=== PATIENT | male | born 1980 | race Caucasian/White ===

== ENCOUNTER 2022-11-04 11:34 | Emergency (ER) | payer MEDICAID, SELFPAY ==
[2022-11-04 11:53] VITALS: BP 101/66; PULSE 112; RESP 20; TEMP 36.7; O2SAT 100; BMI 23.7
--- NOTE | 2022-11-04 12:01 | US_ITS ---
WS: [id number] TESTICULAR ULTRASOUND HISTORY: r testicular pain COMPARISON: None available. TECHNIQUE: Real-time and color Doppler imaging or utilized to perform a testicular ultrasound. Right testicle: 4.6 cm x 3.8 cm x 2.8 cm. Normal sized testicle. Color Doppler is increased within the RIGHT testicle as compared to the LEFT. Small simple hydrocele. Right epididymis: Epididymis is enlarged and heterogeneous with increased vascularity. There is a sma ll spermatocele in the RIGHT epididymal head. Left testicle: 4.5 cm x 4.0 cm x 3.5 cm. Normal size and echogenicity. No mass or torsion. Normal color Doppler is present throughout. Systolic and diastolic velocities are both present. No significant hydrocele. Left epididymis: Normal epididymis with no increased vascularity. US/US scrotum [id number] IMPRESSION: 1. Acute RIGHT epididymo-orchitis. 2. No testicular mass or torsion.
[2022-11-04 14:36] LABS: Add Urine Microscopic? YES; Bilirubin Urine Neg (Negative); Blood Urine Neg (Negative); Glucose Urine UA Norm (Normal); Ketones Urine 1+ (Negative); Leukocyte Esterase Urine 1+ (Negative); Nitrate Urine Negative (Negative); Protein Urine Neg (Negative); Specific Gravity, Urine 1.015 (1.005-1.030); Urine Appearance Clear (CLEAR); Urine Color Yellow (Yellow); Urobilinogen Urine Norm (Negative); pH Urine 9 (5-7)
[2022-11-04 14:49] LABS: RBC Urine 0-4 /hpf (0-2); Sulfosalicylic Acid Urine Negative (Negative); WBC Urine 15-25 /hpf (0-5)
[2022-11-04 14:50] LABS: Bacteria Urine TRACE /hpf; Squamous Epithelial Cell Urine 0-4 /hpf (0-5)
[2022-11-04 14:51] LABS: Add Urine Culture? Yes; Amorphous Sediment Urine TRACE /hpf; Mucus Urine 1+ /hpf
--- NOTE | 2022-11-04 15:41 | ED_ITS ---
Documented by User: Jennifer Crane CINDER MAN-C 11/04/22 19:01 HPI - Male Genitourinary General: Chief complaint: Urogenital-Male Stated complaint: testicular pain Time Seen by Provider: 11/04/22 15:16 History of Present Illness: Patient is in for testicular pain. Patient reports that he started having severe testicular pain on the right side last night. He did not have any injury known to his testicle. He reports that this has not improved and so he came to the ER to have it evaluated. He does offer that he recently got out of longterm 2 months ago when he has had 4 new sexual partner since that time he thinks that he could have an STI. He denies any pe nile drainage. He denies fever, chills, nausea, vomiting. Associated symptoms: Reports dysuria; Deny nausea or vomiting Review of Systems Const: Denies: fever(s), chills or body aches Eyes: Denies: change in vision or blurry vision Card: Denies: chest pain, palpitations, irregular heart rhythm, lightheadedness or syncope Resp: Denies: dyspnea, productive cough or non-productive cough GI: Denies: abdominal pain, nausea or vomiting : Reports: dysuria, testicular pain, scrotal swelling and other (Four new recent sexual partners unprotected); Denies: flank pain, urinary frequency, urinary urgency or urinary hesitancy Musc: Denies: neck pain or back pain Neuro: Denies: headache(s), numbness in extremities or weakness in extremities Physical Exam Const: COMMON NORMALS: patient oriented x3 and alert OTHER: Patient in obvious pain having a difficult time getting comfortable Neck/C-Spine: COMMON NORMALS: no JVD Resp: COMMON NORMALS: normal respiratory effort, No use of accessory muscles and clear to auscultation bilaterally AUSCULTATION: clear to auscultation bilaterally Cardio: COMMON NORMALS: no JVD, regular rate, regular rhythm, S1 normal heart sound present and S2 normal heart sound present RATE: regular rate RHYTHM: regular rhythm HEART SOUNDS: S1 normal heart sound present and S2 normal heart sound present GI: COMMON NORMALS: Normal to inspection, nondistended, normoactive bowel melania nds present, Soft to palpation and non-tender PALPATION: Yes Soft to palpation : SCROTUM: Yes Cremasteric reflex present, Yes Scrotal tenderness present, Yes erythematous Scrotal erythema laterality: right and Yes scrotal swelling Scrotal swelling laterality: right Scrotal swelling consistent with: hydrocele Neuro: COMMON NORMALS: patient oriented x3 SENSORIUM/ORIENTATION: Yes alert Course Vital Signs: Vital signs: Vital Signs Temperature 98.0 F 11/04/22 18:23 Pulse Rate 112 H 11/04/22 18:23 Respiratory Rate 20 H 11/04/22 18:23 Blood Pressure 101/66 11/04/22 18:23 Pulse Oximetry 100 11/04/22 18:23 Oxygen Delivery Me thod 11/04/22 11:53 MDM - Male Medical Decision Making 42-year-old male in for sudden onset right testicular/scrotum pain. Reports that this started last night and has persisted since that time with no relief. He does report that he has had 4 new sexual partners since getting out of longterm 2 months ago. He reports unprotected intercourse. He denies any penile drainage but states it is likely he has a sexually transmitted infection. Differentials include testicular torsion epididymitis, orchitis, hydrocele Ultrasound shows epididymo-orchitis. Likely STI given patient's recent new multiple sexual partners. We will treat to cover for gonorrhea chlamydia. Patient is allergic to cephalosporins. Gentamicin is substituted for Rocephin and patient is given azithromycin. Treated for pain with Toradol and hydrocodone x1 dose. Discussed conservative care at home. Follow-up with primary care provider. Return to the ER as needed for new or worsening symptoms advised him to refrain from intercourse until he is certain that his STI testing is negative. Also encouraged use of condoms for barrier protection from STIs. Lab Data Radiology Impressions Scrotum Ultrasound 11/04/22 12:01 IMPRESSION: 1. Acute RIGHT epididymo-orchitis. 2. No testicular mass or torsion. Laboratory Results Urine Color Yellow (Yellow) 11/04/22 13:44 Urine Appearance Clear (CLEAR) 11/04/22 13:44 Urine pH 9 (5-7) H 11/04/22 13:44 Ur Specific [place] 1.015 (1.005-1.030) 11/04/22 13:44 Urine Protein Neg (Negative) 11/04/22 13:44 Urine Glucose (UA) Norm (Normal) 11/04/22 13:44 Urine Ketones 1+ (Negative) H 11/04/22 13:44 Urine Blood Neg (Negative) 11/04/22 13:44 Urine Nitrate Negative (Negative) 11/04/22 13:44 Urine Bilirubin Neg (Negative) 11/04/22 13:44 Prot Sulfosalicylic Acd Negative (Negative) 11/04/22 13:44 Urine Urobilinogen Norm mg/dL (Negative) 11/04/22 13:44 Ur Leukocyte Esterase 1+ (Negative) H 11/04/22 13:44 Urine RBC 0-4 /hpf (0-2) H 11/04/22 13:44 Urine WBC 15-25 /hpf (0-5) H 11/04/22 13:44 Ur Squamous Epith Cells 0-4 /hpf (0-5) H 11/04/22 13:44 Amorphous Sediment Trace /hpf 11/04/22 13:44 Urine Bacteria Trace /hpf (NONE) 11/04/22 13:44 Urine Mucus 1+ /hpf 11/04/22 13:44 Discharge Plan Discharge Patient Disposition: Home Clinical Impression: Epididymo-orchitis without abscess, History of sexual behavior with high risk of exposure to communicable disease Condition: Stable Prescriptions: No Action No Known Home Medications Discharge Orders: Discharge ED (Routine); Ordered 11/04/22 Ordered By: Jennifer Crane Discharge Diet: Usual diet Discharge Activity: Increase activity as tolerated Patient Instructions: Epididymo-Orchitis (ED) Activity Restrictions/Additional Instructions: Rest, ice, elevation of testicles may be helpful for pain control. You may take Tylenol and Motrin as needed. You were treated with antibiotics in here today to cover for gonorrhea and chlamydia. Your urine was sent for testing. Do not engage in sexual activity until you know that your urine tested negative for sexually transmitted infections. Follow-up with primary care provider as needed. Return to the ER for any new or worsening symptoms. 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 Reports that this started last night and has persisted since that time with no relief. He does report that he has had 4 new sexual partners since getting out of longterm 2 months ago. He reports unprotected intercourse. He denies any penile drainage but states it is likely he has a sexually transmitted infection. Differentials include testicular torsion epididymitis, orchitis, hydrocele Ultrasound shows epididymo-orchitis. Likely STI given patient's recent new multiple sexual partners. We will treat to cover for gonorrhea chlamydia. Patient is allergic to cephalosporins. Gentamicin is substituted for Rocephin and patient is given azithromycin. Treated for pain with Toradol and hydrocodone x1 dose. Discussed conservative care at home. Follow-up with primary care provider. Return to the ER as needed for new or worsening symptoms advised him to refrain from intercourse until he is certain that his STI testing is negative. Also encouraged use of condoms for barrier protection from STIs. Chart reviewed and patient discussed with midlevel. Agree with assessment and plan. Lab Data Radiology Impressions Scrotum Ultrasound 11/04/22 12:01 IMPRESSION: 1. Acute RIGHT epididymo-orchitis. 2. No testicular mass or torsion. Laboratory Results Urine Color Yellow (Yellow) 11/04/22 13:44 Urine Appearance Clear (CLEAR) 11/04/22 13:44 Urine pH 9 (5-7) H 11/04/22 13:44 Ur Specific [place] 1.015 (1.005-1.030) 11/04/22 13:44 Urine Protein Neg (Negative) 11/04/22 13:44 Urine Glucose (UA) Norm (Normal) 11/04/22 13:44 Urine Ketones 1+ (Negative) H 11/04/22 13:44 Urine Blood Neg (Negative) 11/04/22 13:44 Urine Nitrate Negative (Negative) 11/04/22 13:44 Urine Bilirubin Neg (Negative) 11/04/22 13:44 Prot Sulfosalicylic Acd Negative (Negative) 11/04/22 13:44 Urine Urobilinogen Norm mg/dL (Negative) 11/04/22 13:44 Ur Leukocyte Esterase 1+ (Negative) H 11/04/22 13:44 Urine RBC 0-4 /hpf (0-2) H 11/04/22 13:44 Urine WBC 15-25 /hpf (0-5) H 11/04/22 13:44 Ur Squamous Epith Cells 0-4 /hpf (0-5) H 11/04/22 13:44 Amorphous Sediment Trace /hpf 11/04/22 13:44 Urine Bacteria Trace /hpf (NONE) 11/04/22 13:44 Urine Mucus 1+ /hpf 11/04/22 13:44 Discharge Plan Discharge Patient Disposition: Home Clinical Impression: Epididymo-orchitis without abscess, History of sexual behavior with high risk of exposure to communicable disease Condition: Stable Prescriptions: No Action No Known Home Medications Discharge Orders: Discharge ED (Routine); Ordered 11/04/22 Ordered By: Jennifer Crane Discharge Diet: Usual diet Discharge Activity: Increase activity as tolerated Patient Instructions: Epididymo-Orchitis (ED) Activity Restrictions/Additional Instructions: Rest, ice, elevation of testicles may be helpful for pain control. You may take Tylenol and Motrin as needed. You were treated with antibiotics in here today to cover for gonorrhea and chlamydia. Your urine was sent for testing. Do not engage in sexual activity until you know that your urine tested negative for sexually transmitted infections. Follow-up with primary care provider as needed. Return to the ER for any new or worsening symptoms. 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
[2022-11-04] MEDS: HYDROcodone-acetaminophen 5-325 mg Tablet 1 TAB PO (16:03)
[2022-11-04] MEDS: ketorolac 30 mg/mL INJ IVP (16:03)
[2022-11-04] MEDS: azithromycin 250 mg Tablet 2000 MG PO (16:03)
[2022-11-04 18:23] VITALS: BP 101/66; PULSE 112; RESP 20; TEMP 36.7; O2SAT 100
== END 2022-11-04 16:25 | disposition home or self-care (01) ==
PROVIDERS: Emergency Medicine; Emergency Provider Nurse Practitioner Family
DX: N45.3 Epididymo-orchitis (principal); Z72.51 High risk heterosexual behavior
CPT/HCPCS: 76870; 81001; 87086; 87491; 87591; 99285; J1580; J1885; Q0144

== ENCOUNTER 2022-11-05 14:13 | Inpatient (IN) | payer MEDICAID, SELFPAY ==
[2022-11-05 14:21] VITALS: BP 93/71; PULSE 99; RESP 16; TEMP 37.3; O2SAT 100; BMI 23.7
--- NOTE | 2022-11-05 14:38 | W.ED.MALEGU ---
HPI - Male Genitourinary General: Chief complaint: Urogenital-Male Stated complaint: testicular pain still Time Seen by Provider: 11/05/22 14:31 Source: patient Mode of arrival: ambulatory History of Present Illness: 42-year-old male presents emergency room with complaint of right testicular pain. Seen yesterday had a scrotal ultrasound that showed right epididymitis she was treated empirically with 2 g of Zithromax and IM gentamicin. He continues to have pain today. MD Complaint: testicle pain and testicle swelling Onset (ago): day(s) Duration: constant Location: right testicle Severity: severe Quality: aching Relieving factors: none Exacerbating factors: none Associated symptoms: Reports nausea and swelling; Deny discharge, dysuria, fevers/chills, hematuria, rash, urinary incontinence, urinary retention, mass, vomiting or other Review of Systems Const: Denies: fever(s), chills, body aches, change in appetite, fatigue or malaise ENMT: Denies: throat pain, ear or mastoid pain, nasal discharge or nasal congestion Card: Denies: chest pain, edema, dyspnea on exertion or orthopnea Resp: Denies: dyspnea, productive cough or non-productive cough GI: Reports: nausea; Denies: vomiting : Denies: dysuria, urinary incontinence or hematuria Skin/Breast: Denies: rash or pruritus PFSH ED PFSH: Medical History Epididymo-orchitis without abscess Nicotine dependence Physical Exam Const: GENERAL APPEARANCE: cooperative and comfortable ORIENTATION/CONSCIOUSNESS: Yes awake, Yes oriented to person, Yes oriented to place and Yes oriented to time HENMT: COMMON NORMALS: normocephalic, atraumatic and hearing grossly normal bilaterally HEAD & SCALP: normocephalic and atraumatic Resp: COMMON NORMALS: normal respiratory effort, No retractions, No use of accessory muscles and clear to auscultation bilaterally AUSCULTATION: clear to auscultation bilaterally Cardio: COMMON NORMALS: regular rate, regular rhythm and No murmurs present (Cardio) RATE: regular rate RHYTHM: regular rhythm GI: COMMON NORMALS: Soft to palpation and No hepatosplenomegaly present AUSCULTATION: Yes normoactive bowel sounds PALPATION: Yes Soft to palpation, No Tenderness to palpation present (GI), No Guarding due to palpation present (GI) and Yes No hepatosplenomegaly present : OTHER: Prominent swelling with induration of the skin exquisite tenderness palpation of the right testicle. No abscess. No drainage Extremity: COMMON NORMALS: normal to inspection, capillary refill normal, no clubbing, cyanosis or edema, no calf tenderness and no pedal edema Neuro: SENSORIUM/ORIENTATION: Yes oriented to person, Yes oriented to place and Yes oriented to time Skin: COMMON NORMALS: no rashes or lesions noted GENERAL SKIN EXAM: no rashes or lesions noted Course Vital Signs: Vital signs: Vital Signs Temperature 98.1 F 11/08/22 13:54 Pulse Rate 70 11/08/22 13:54 Respiratory Rate 16 11/08/22 13:54 Blood Pressure 105/67 11/08/22 13:54 Pulse Oximetry 97 11/08/22 13:54 Oxygen Delivery Me thod 11/08/22 11:31 MDM - Male Medical Decision Making Severe epididymitis with progressed to cellulitis. Will admit started on IV vancomycin discussed with hospitalist consult urology Lab Data 11/05/22 14:50 11/05/22 14:[address] 11/05/22 16:32 IMPRESSION: Findings of right-sided mastitis and epididymitis. Laboratory Results WBC 21.5 10^3/uL (4.0-10.0) H 11/05/22 14:50 RBC 4.79 10^6/uL (4.1-5.3) 11/05/22 14:50 Hgb 14.5 g/dL (11.7-16.6) 11/05/22 14:50 Hct 44.6 % (42.0-52.0) 11/05/22 14:50 MCV 93.1 fl (80-94) 11/05/22 14:50 MCH 30.3 pg (28.0-34.0) 11/05/22 14:50 MCHC 32.5 g/dL (30.0-36.0) 11/05/22 14:50 RDW 13.6 % (12.1-15.1) 11/05/22 14:50 Plt Count 201 10^3/cmm (130-400) 11/05/22 14:50 MPV 9.9 fL (7.4-10.4) 11/05/22 14:50 Neut % (Auto) 84.3 % 11/05/22 14:50 Lymph % (Auto) 9.1 % 11/05/22 14:50 [place] % (Auto) 5.4 % 11/05/22 14:50 Eos % (Auto) 0.2 % 11/05/22 14:50 Baso % (Auto) 0.3 % 11/05/22 14:50 Neut # (Auto) 18.13 10^3/uL (1.8-7.7) H 11/05/22 14:50 Lymph # (Auto) 2.0 10^3/uL (0.8-4.8) 11/05/22 14:50 [place] # (Auto) 1.2 10^3/uL (0.2-0.9) H 11/05/22 14:50 Eos # (Auto) 0.0 10^3/uL (0.0-0.8) 11/05/22 14:50 Baso # (Auto) 0.1 10^3/uL (0.0-0.1) 11/05/22 14:50 Nucleated RBC % (auto) 0 % 11/05/22 14:50 Nucleated RBCs # 0.0 /100WBC 11/05/22 14:50 Sodium 137 mmol/L (136-145) 11/05/22 14:50 Potassium 3.8 mmol/L (3.5-5.1) 11/05/22 14:50 Chloride 98 mmol/L (98-107) 11/05/22 14:50 Carbon Dioxide 26 mmol/L (22-29) 11/05/22 14:50 Anion Gap 16.8 (5-19) 11/05/22 14:50 BUN 13 mg/dL (6-20) 11/05/22 14:50 Creatinine 0.9 mg/dL (0.7-1.2) 11/05/22 14:50 GFR Calculation 93.0 mL/min (90-130) 11/05/22 14:50 Glucose 127 mg/dL (65-115) H 11/05/22 14:50 Calculated Osmolality 286 mOsm/kg (285-295) 11/05/22 14:50 Lactic Acid 1.6 mmol/L (0.5-2.2) 11/05/22 17:40 Calcium 8.8 mg/dL (8.5-10.5) 11/05/22 14:50 Procalcitonin 0.41 ng/mL (0-0.5) 11/05/22 14:50 TSH 0.46 uIU/mL (0.27-4.20) 11/05/22 14:50 HIV 1&2 Ab & HIV 1 Ag Non-reactive (Non-Reactiv) 11/05/22 04:58 HIV 1&2 Antibody Non-reactive (Non-Reactiv) 11/05/22 04:58 Discharge Plan Discharge Patient Disposition: Admitted As Inpatient Admit Provider: Latasha Newton Clinical Impression: Epididymitis, Cellulitis Condition: Stable 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
[2022-11-05] MEDS: sodium chloride 0.9% 1,000 ML 999 ML IV ×2 (14:49→15:01)
[2022-11-05] MEDS: ketorolac 30 mg/mL INJ 60 MG IM (14:49)
[2022-11-05] MEDS: morphine 4 mg/mL SDV 1 mL IVP (14:49)
[2022-11-05] MEDS: ondansetron 2 mg/ML SDV 2 mL 4 MG IVP (14:50)
[2022-11-05] MEDS: vancomycin 1,000 MG in sodium chloride 0.9% 250 ML 250 MG IV (14:59)
[2022-11-05 15:22] LABS: Basophils # 0.1 10^3/uL (0.0-0.1); Basophils % 0.3 %; Eosinophils % 0.2 %; Hematocrit 44.6 % (42.0-52.0); Hemoglobin 14.5 g/dL (11.7-16.6); Lymphocytes % 9.1 %; Mean Corpuscular HGB Conc 32.5 g/dL (30.0-36.0); Mean Corpuscular Hemoglobin 30.3 pg (28.0-34.0); Mean Corpuscular Volume 93.1 fl (80-94); Mean Platelet Volume 9.9 fL (7.4-10.4); Monocytes # 1.2 10^3/uL (0.2-0.9); Monocytes % 5.4 %; Neutrophils # 18.13 10^3/uL (1.8-7.7); Neutrophils % 84.3 %; Nucleated Red Blood Cells % 0 %; Platelet Count 201 10^3/cmm (130-400); Red Blood Count 4.79 10^6/uL (4.1-5.3); Red Cell Distribution Width 13.6 % (12.1-15.1); White Blood Count 21.5 10^3/uL (4.0-10.0)
[2022-11-05 15:39] LABS: Anion Gap 16.8 (5-19); Blood Urea Nitrogen 13 mg/dL (6-20); Calcium 8.8 mg/dL (8.5-10.5); Carbon Dioxide 26 mmol/L (22-29); Chloride 98 mmol/L (98-107); Glucose 127 mg/dL (65-115); Osmolality Calculated 286 mOsm/kg (285-295); Potassium 3.8 mmol/L (3.5-5.1); Sodium 137 mmol/L (136-145)
--- NOTE | 2022-11-05 16:32 | CTR_ITS ---
PROCEDURE INFORMATION: Exam: CT Pelvis With Contrast Exam date and time: 11/05/2022 5:12 PM Age: 42 years old Clinical indication: Patient HX: PT C/O testicular pain w/swelling x 2 days; Swollen scrotum/fournierrs. ; Additional info: Swollen scrotum/ fournierrs TECHNIQUE: Imaging protocol: Computed tomography of the pelvis with contrast. Radiation optimization: All CT scans at this facility use at least one of these dose optimization techniques: automated exposure control; mA and/or kV adjustment per patient size (includes targeted exams where dose is matched to clinical indication); or iterative reconstruction. Contrast material: OMNI 350; Contrast volume: 100 ml; Contrast route: INTRAVENOUS (IV); Other protocol: This patient has received 0 known CTs and 0 known cardiac nuclear medicine studies in the 12 months prior to the current study. COMPARISON: US scrotum [id number] 11/04/2022 12:46 PM RADIATION DOSE METRICS: Total DLP (mGy-cm): 352.18 FINDINGS: Stomach and bowel: Visualized small bowel and colon are unremarkable. Appendix: Appendix is not visualized on this exam. Intraperitoneal space: Unremarkable. No free air. No significant fluid collection. Lymph nodes: Unremarkable. No enlarged lymph nodes. Urinary bladder: Urinary bladder is unremarkable. Reproductive: There is hyperemia of the right epididymis and hyperenhancement of the vessels of the right spermatic cord. No large hydrocele is identified. Bones/joints: No acute fracture is identified. Soft tissues: There is some swelling or edema in the right inguinal canal and of the right spermatic cord which may represent some mastitis. There is mild swelling of the scrotal wall but no drainable fluid collection or abscess and no abnormal soft tissue gas. CT/CT pelvis w con* [id number] IMPRESSION: Findings of right-sided mastitis and epididymitis.
[2022-11-05] MEDS: sodium chloride 0.9% 2,449.41 ML 2449.41 ML IV (16:43)
[2022-11-05] MEDS: iohexol 350 mg/mL 500 mL Btl (per mL) IV (17:13)
[2022-11-05 17:29] VITALS: BP 94/60; PULSE 75; RESP 16; O2SAT 98
[2022-11-05 18:09] VITALS: BP 90/55; PULSE 80; RESP 16; O2SAT 99
--- NOTE | 2022-11-05 18:25 | P.HP_ITS ---
Providers/Chief Complaint Admitting Physician: Latasha Newton MD Chief Complaint: testicular pain still History of Present Illness Marco A Pagan is a 42 year old male with no significant past medical history presenting to the ER with complaint of worsening swelling of his scrotum. He was seen today before in the ER for testicular pain. At that point he stated that he was having severe testicular pain on the right side. No known injury. He did get out of [facility] ago and he has had 4 new sexual partner since that time and he thought he had STD. He denies any penile discharge. Denies fever chills nausea vomiting. Patient was treated for gonorrhea chlamydia and urine sample was sent off to test for it. He was allergic to cephalosporins so he was given gentamicin and azithromycin including Toradol and hydrocodone. Scrotal ultrasound was also done which showed acute right epididymal orchitis no testicular mass or torsion. He was asked to return to the ER if it worsened. He presented tonight for worsening of symptoms. He also states that lately he has noticed he has a decreased urine stream. Has never had urological issues in the past. He is unaware of any prostate problems. Today in the ER pelvic CT was done which showed findings of right-sided mastitis and epididymitis. Some swelling in right inguinal canal of right spermatic cord. No drainable fluid collection or abscess and no abnormal soft tissue gas. Dr. Soriano was consulted from the ER. He recommended conservative management with antibiotics at this point. Blood pressure 90/60 at this time when seen. Not tachycardic. WBC 21,000, UA from yesterday shows 1+ leukocyte esterase, WBC 50-25. Gonorrhea chlamydia negative. Patient is consented to check for HIV. Lactic acid 1.6. Patient is a smoker. Does not drink alcohol. Medications/Allergies Home Medications Medication Instructions Recorded Confirmed Last Taken Type No Known Home Medications 11/04/22 11/05/22 Unknown History Allergies Allergy/AdvReac Type Severity Reaction Status Date / Time cephalexin [From Keflex] Allergy ALGY-Anaphy Verified 11/05/22 14:22 laxis Vitals/I&O/Wt Last Vital Signs Temp 99.2 F 11/05/22 14:21 Pulse 80 11/05/22 18:09 Resp 16 11/05/22 18:09 BP 90/55 11/05/22 18:09 Pulse Ox 99 11/05/22 18:09 O2 Del Method 11/05/22 18:09 11/05/22 11/05/22 11/05/22 06:59 14:59 22:59 Intake Total 1449.8 / 1449.8 Balance 1449.8 / 1449.8 Weight last 48 hrs Weight 81.647 kg Physical Exam Narrative: General: Alert oriented x3, patient seen sitting in bed HEENT: Normocephalic, atraumatic, EOMI, breathing normally no acute distress. Cardio: Regular rate rhythm, normal S1-S2, Respiratory: Good bilateral air entry, no wheezes no rhonchi appreciated GI: Abdomen soft, nontender, nondistended, bowel sounds + : Redness noted in the right groin area extending up to thigh and involving the scrotum. Scrotum swelling equivalent to size of grapefruit, extremely tender to palpation and very erythematous. No apparent drainage or open wounds noted. Exam was quite limited secondary to pain. Patient did not allow me to move the scrotum to look at the groin completely secondary to pain. Did not perform a prostate exam at this time due to patient's positioning and extreme pain with any kind of manipulation. Extremities: No edema noted. Data 11/05/22 14:50 11/05/22 14:50 Micro: Microbiology 11/05/22 15:03 Blood Culture - Preliminary Blood SPECIMEN COLLECTED 11/05/22 14:59 Blood Culture - Preliminary Blood SPECIMEN COLLECTED A&P Assessment and plan (1) Epididymo-orchitis without abscess: (2) History of sexual behavior with high risk of exposure to communicable disease: (3) Cellulitis: (4) Nicotine dependence: Plan #Acute epididymitis/orchitis #Cellulitis of right groin #Nicotine dependence ? Gonorrhea chlamydia negative, HIV screen ordered ? Patient is status post azithromycin and IM gentamicin from yesterday's visit ? Given normal saline 1 L bolus ? Continue on IV fluids normal saline 125 cc/h ? Patient is allergic to Keflex. He had hives and possible anaphylaxis in the past according to what he is explaining. ? We will order vancomycin and meropenem at this time ? Appreciate recommendations from urology. ? Await results of urine culture - He will need to follow-up with urology at discharge. -Await blood cultures -Nicotine patch offered but patient declined at this time. Full code DVT prophylaxis: Low risk for DVT. SCDs should suffice. Attestations Medical Necessity Statement*: Will cross greater than 2 midnight stay for IV antibiotics for treatment of cellulitis/acute epididymitis. Diagnoses Epididymo-orchitis without abscess N45.3 History of sexual behavior with high risk of exposure to communicable disease Z91.89 Cellulitis L03.90 Nicotine dependence F17.200
[2022-11-05 18:50] LABS: Lactic Sepsis W/Reflex 1.6 mmol/L (0.5-2.2)
[2022-11-05 19:44] VITALS: BP 105/64; PULSE 71; RESP 18; O2SAT 98
[2022-11-05 19:47] LABS: Procalcitonin 0.41 ng/mL (0-0.5)
[2022-11-05 19:48] LABS: Thyroid Stimulating Hormone 0.46 uIU/mL (0.27-4.20)
[2022-11-05 20:00] VITALS: BP 99/61; PULSE 82; RESP 18; TEMP 36.7; O2SAT 99
[2022-11-05 21:56] VITALS: BMI 23.7
[2022-11-05 22:08] VITALS: RESP 16
[2022-11-05] MEDS: sodium chloride 0.9% 1,000 ML 125 ML IV (22:08)
[2022-11-05] MEDS: morphine 4 mg/mL SDV 1 mL 2 MG IVP (22:08)
[2022-11-05] MEDS: meropenem 1,000 MG in sodium chloride 0.9% (plus) 50 ML 100 MG IV (22:08)
[2022-11-05] MEDS: vancomycin 1,250 MG/250 ML PIGGYBACK 250 MG IV (23:23)
[2022-11-06 00:38] VITALS: BP 95/60; PULSE 90; RESP 17; TEMP 37.4; O2SAT 95
[2022-11-06] MEDS: meropenem 1,000 MG in sodium chloride 0.9% (plus) 50 ML 100 MG IV ×3 (02:42→18:38)
[2022-11-06 04:20] VITALS: BP 98/46; PULSE 144; RESP 19; TEMP 37.4; O2SAT 90
--- NOTE | 2022-11-06 04:21 | PC.NURSE ---
Dr Valadez notified of low blood pressures and last charted, including fluids running. No new orders taken at this time.
[2022-11-06 05:18] LABS: Add Urine Microscopic? YES; Bilirubin Urine Neg (Negative); Blood Urine Neg (Negative); Glucose Urine UA Norm (Normal); Ketones Urine Negative (Negative); Leukocyte Esterase Urine Negative (Negative); Nitrate Urine Negative (Negative); Protein Urine Trace (Negative); Urine Appearance Clear (CLEAR); Urine Color Yellow (Yellow); Urobilinogen Urine 1 mg/dL (Negative); pH Urine 5 (5-7)
[2022-11-06 05:20] LABS: Add Urine Culture? No; Bacteria Urine TRACE /hpf; Mucus Urine TRACE /hpf; RBC Urine 0-4 /hpf (0-2); Squamous Epithelial Cell Urine 0-4 /hpf (0-5); WBC Urine 0-4 /hpf (0-5)
[2022-11-06 05:22] LABS: Basophils % 0.2 %; Eosinophils # 0.1 10^3/uL (0.0-0.8); Eosinophils % 0.5 %; Hemoglobin 12.2 g/dL (11.7-16.6); Lymphocytes # 1.9 10^3/uL (0.8-4.8); Lymphocytes % 12.2 %; Mean Corpuscular HGB Conc 31.3 g/dL (30.0-36.0); Mean Corpuscular Hemoglobin 30.4 pg (28.0-34.0); Mean Corpuscular Volume 97.3 fl (80-94); Monocytes # 0.9 10^3/uL (0.2-0.9); Monocytes % 6.2 %; Neutrophils # 12.19 10^3/uL (1.8-7.7); Neutrophils % 80.4 %; Nucleated Red Blood Cells % 0 %; Platelet Count 167 10^3/cmm (130-400); Red Blood Count 4.01 10^6/uL (4.1-5.3); Red Cell Distribution Width 13.7 % (12.1-15.1); White Blood Count 15.2 10^3/uL (4.0-10.0)
[2022-11-06 05:46] LABS: Anion Gap 8.9 (5-19); Blood Urea Nitrogen 12 mg/dL (6-20); Calcium 7.3 mg/dL (8.5-10.5); Carbon Dioxide 23 mmol/L (22-29); Chloride 107 mmol/L (98-107); Glomerular Filtration Rate 124.3 mL/min (90-130); Glucose 90 mg/dL (65-115); Osmolality Calculated 279 mOsm/kg (285-295); Potassium 3.9 mmol/L (3.5-5.1); Sodium 135 mmol/L (136-145)
[2022-11-06 05:59] LABS: HIV 1 & 2 Antibody Non-Reactive (Non-Reactiv); HIV 1 & 2 Antigen Non-Reactive (Non-Reactiv)
[2022-11-06] MEDS: vancomycin 1,250 MG/250 ML PIGGYBACK 250 MG IV ×2 (06:07→15:23)
[2022-11-06 07:40] VITALS: BP 105/62; PULSE 95; RESP 16; TEMP 37; O2SAT 93
[2022-11-06] MEDS: sodium chloride 0.9% 1,000 ML 125 ML IV ×2 (10:07→20:36)
[2022-11-06] MEDS: ketorolac 10 mg Tablet PO ×2 (10:21→17:28)
[2022-11-06] MEDS: HYDROcodone-acetaminophen 5-325 mg Tablet 1 TAB PO ×2 (11:07→15:21)
[2022-11-06 12:00] VITALS: BP 100/63; PULSE 75; RESP 16; TEMP 36.7; O2SAT 95
--- NOTE | 2022-11-06 14:04 | PM.PN ---
Subjective Subjective: Patient tells me this morning that the cellulitis has improved, but still it continues to hurt, no fevers, no chills Vitals/I&O/Wt Last Vital Signs Temp 98.0 F 11/06/22 12:00 Pulse 75 11/06/22 12:00 Resp 16 11/06/22 12:00 BP 100/63 11/06/22 12:00 Pulse Ox 95 11/06/22 12:00 O2 Del Method 11/06/22 12:00 11/05/22 11/06/22 11/06/22 22:59 06:59 14:59 Intake Total 1929.8 / 1929.8 1590 / 3519.8 900 / 900 Output Total 400 / 400 Balance 1929.8 / 1929.8 1190 / 3119.8 900 / 900 Weight last 48 hrs Weight 81.647 kg Weight 81.647 kg Physical Exam Const: COMMON NORMALS: no acute distress and patient oriented x3 Resp: COMMON NORMALS: normal respiratory effort, No retractions, No use of accessory muscles and clear to auscultation bilaterally AUSCULTATION: clear to auscultation bilaterally Cardio: COMMON NORMALS: regular rate, regular rhythm, S1 normal heart sound present and S2 normal heart sound present RATE: regular rate RHYTHM: regular rhythm HEART SOUNDS: S1 normal heart sound present and S2 normal heart sound present GI: COMMON NORMALS: Normal to inspection, nondistended, normoactive bowel sounds present and non-tender : OTHER: Right scrotal erythema, swelling Extremity: COMMON NORMALS: no pedal edema Neuro: COMMON NORMALS: patient oriented x3 Psych: COMMON NORMALS: mental status grossly normal Data 11/06/22 04:58 11/06/22 04:58 Micro: Microbiology 11/05/22 15:03 Blood Culture - Preliminary Blood SPECIMEN COLLECTED 11/05/22 14:59 Blood Culture - Preliminary Blood SPECIMEN COLLECTED A&P Assessment and plan (1) Epididymo-orchitis without abscess: (2) History of sexual behavior with high risk of exposure to communicable disease: (3) Cellulitis: (4) Nicotine dependence: Plan #Acute epididymitis/orchitis #Cellulitis of right groin #Nicotine dependence ? Gonorrhea chlamydia negative, HIV screen negative ? Patient is status post azithromycin and IM gentamicin from yesterday's visit ? Continue on IV fluids normal saline 125 cc/h ? Patient is allergic to Keflex. He had hives and possible anaphylaxis in the past according to what he is explaining. ? Continue vancomycin and meropenem at this time -Scrotal elevation -Hydrocodone as needed for pain control ? Appreciate recommendations from urology. ? Await results of urine culture - He will need to follow-up with urology at discharge. -Await blood cultures -Nicotine patch offered but patient declined at this time. Full code DVT prophylaxis: Low risk for DVT. SCDs should suffice. Attestations Medical Necessity Statement*: Patient requires hospitalization for acute epididymitis, orchitis, cellulitis of right groin Coding Level of Care Code Acute Code for [facility] Diagnoses Epididymo-orchitis without abscess N45.3 History of sexual behavior with high risk of exposure to communicable disease Z91.89 Cellulitis L03.90 Nicotine dependence F17.200
[2022-11-06 15:12] LABS: Vancomycin Trough 11.7 ug/mL (10-15)
[2022-11-06 15:44] VITALS: BP 104/68; PULSE 82; RESP 15; TEMP 36.6; O2SAT 95
[2022-11-06 20:00] VITALS: BP 100/60; PULSE 94; RESP 16; TEMP 36.8; O2SAT 95
--- NOTE | 2022-11-06 20:46 | PC.NURSE ---
Right testicle remains edematous, red, and tender. Skin unbroken, open to air. Left testicle is now slightly edematous and red, swelling appears to have spread. Discussion took place involving patient's desire to speak with Dr in morning to see treatment options.
[2022-11-07] VITALS: BP 106/61; PULSE 100; RESP 18; TEMP 37; O2SAT 92
[2022-11-07] MEDS: vancomycin 1,250 MG/250 ML PIGGYBACK 250 MG IV ×4 (00:37→23:18)
[2022-11-07] MEDS: meropenem 1,000 MG in sodium chloride 0.9% (plus) 50 ML 100 MG IV ×3 (03:06→18:42)
[2022-11-07 04:00] VITALS: BP 113/75; PULSE 90; RESP 16; TEMP 37.4; O2SAT 95
[2022-11-07] MEDS: sodium chloride 0.9% 1,000 ML 125 ML IV ×2 (06:01→17:43)
[2022-11-07 08:00] VITALS: BP 112/70; PULSE 89; RESP 18; TEMP 37.2; O2SAT 95
[2022-11-07] MEDS: HYDROcodone-acetaminophen 5-325 mg Tablet 1 TAB PO ×3 (09:29→23:18)
[2022-11-07 11:01] LABS: Basophils % 0.1 %; Eosinophils # 0.2 10^3/uL (0.0-0.8); Hematocrit 41.6 % (42.0-52.0); Hemoglobin 13.1 g/dL (11.7-16.6); Lymphocytes # 1.3 10^3/uL (0.8-4.8); Lymphocytes % 13.1 %; Mean Corpuscular HGB Conc 31.5 g/dL (30.0-36.0); Mean Corpuscular Hemoglobin 30.5 pg (28.0-34.0); Mean Corpuscular Volume 96.7 fl (80-94); Mean Platelet Volume 10.5 fL (7.4-10.4); Monocytes # 0.6 10^3/uL (0.2-0.9); Monocytes % 6.2 %; Neutrophils # 7.86 10^3/uL (1.8-7.7); Neutrophils % 78.3 %; Nucleated Red Blood Cells % 0 %; Platelet Count 195 10^3/cmm (130-400); Red Cell Distribution Width 13.8 % (12.1-15.1)
[2022-11-07 11:27] LABS: Anion Gap 12.9 (5-19); Blood Urea Nitrogen 6 mg/dL (6-20); C Reactive Protein 57.5 mg/L (0.0-4.9); Calcium 8.2 mg/dL (8.5-10.5); Carbon Dioxide 22 mmol/L (22-29); Chloride 106 mmol/L (98-107); Glomerular Filtration Rate 124.3 mL/min (90-130); Glucose 104 mg/dL (65-115); Osmolality Calculated 282 mOsm/kg (285-295); Potassium 3.9 mmol/L (3.5-5.1); Sodium 137 mmol/L (136-145)
--- NOTE | 2022-11-07 11:35 | P.CONIM_ITS ---
Providers/Reason For Consult Consulting Physician/Specialty*: Urology/Soriano Reason for Consult*: Refractory testicular pain Requesting Physician: Dr. Solares Attending Physician: Theodore Solares MD Primary Care Provider: None listed History of Present Illness History of Present Illness Marco A Pagan is a 42 year old male originally evaluated in the emergency department on 11/04/2022 for complaints of severe right-sided testalgia beginning the night before. No obvious penile drainage but did state that he had some dysuria. Original imaging included an ultrasound that showed evidence of right epididymoorchitis. There was good flow to both testicles. No hernia or masses noted. No evidence of torsion. He was given a shot of gentamicin and sent home with azithromycin. On the following day he represented back to the emergency department with complaints of uncontrolled pain. There was some concern about the possibility of cellulitis. Because of his poorly controlled symptoms and worsening on treatment he was admitted for further evaluation and treatment. Imaging in the ED again more consistent with infectious changes. There was no gas in the tissue. No evidence of Zia's gangrene. There was never any obvious fluid collection identified in the scrotum consistent with an abscess on either ultrasound or CT scan. There was distinct thickening of the scrotal skin though that was felt to be an inflammatory response versus cellulitis. Lab evaluation: * Initial urinalysis showed 15-25 white cells. And repeat urinalysis 2 days later showed 0-4 white cells. * STD work-up were negative for chlamydia and Neisseria gonorrhea. HIV studies were also normal. * Urine and cultures have been no growth * White count on day of admission was 21.5. Decreased to 15.2 yesterday and this morning was 10.0. Physical exam today shows marked induration of the right epididymis with some extension of the cord. There is significant scrotal edema which appears to be just reaction. No fluctuance or abscess palpated. Testicle itself feels normal. I think he is improving based on improvement in white count, normalization of urinalysis, absence of any development of abscess since diagnosis and no progression of systemic symptoms. He was worried that there was actually more swollen today but I think he was really describing the skin reaction changes and not the epididymis features. Would recommend continuing current treatment and once his symptoms are significantly improved and can be managed at home convert to oral antibiotics. Reviewed with Dr. Solares. Review of Systems Const: Denies: fever(s) or chills Eyes: Denies: change in vision ENMT: Denies: hoarseness Card: Denies: chest pain or palpitations Resp: Denies: dyspnea or productive cough GI: Denies: abdominal pain, nausea or vomiting : Reports: dysuria, testicular pain, scrotal swelling and other (See HPI); Denies: flank pain or difficulty urinating Musc: Denies: back pain or joint redness Skin/Breast: Denies: rash Neuro: Denies: confusion or Slurred speech present Psych: Denies: anxiety or depression Endo: Denies: flushing Nas/Lymph: Denies: easy bruising or easy bleeding All/Imm: Denies: urticaria or acute wheezing Medications/Allergies Home Medications Medication Instructions Recorded Confirmed Last Taken Type No Known Home Medications 11/04/22 11/05/22 Unknown History Allergies Allergy/AdvReac Type Severity Reaction Status Date / Time cephalexin [From Keflex] Allergy ALGY-Anaphy Verified 11/05/22 14:22 laxis Current Medications Generic Name Dose Route Start Last Admin Trade Name Freq PRN Reason Stop Dose Admin Hydrocodone Bitart/Acetaminophen 1 tab 11/06/22 10:28 11/07/22 09:29 Hydrocodone-Acetaminophen 5-325 Mg Tablet PO 1 tab Q4H PRN Administration MODERATE PAIN Sodium Chloride 1,000 mls @ 125 mls/hr 11/05/22 18:30 11/07/22 06:01 Sodium Chloride 0.9% IV 125 mls/hr .Q8H ROLANDO Administration Meropenem 1,000 mg/ Sodium 50 mls @ 100 mls/hr 11/05/22 19:00 11/07/22 04:17 Chloride IV Infused Q8H ROLANDO Infusion Protocol Vancomycin/PEG/NADA/Lysine/Water 1,250 mg in 250 mls @ 250 mls/hr 11/05/22 23:00 11/07/22 07:04 Vancocin IV Infused Q8H ROLANDO Infusion Ketorolac Tromethamine 10 mg 11/05/22 18:19 11/06/22 17:28 Ketorolac 10 Mg Tablet PO 11/10/22 18:18 10 mg Q6H PRN Administration MODERATE PAIN PFSH Acute PFSH: Medical History (Updated 11/07/22 @ 12:05 by Talib Soriano MD) Epididymo-orchitis without abscess Nicotine dependence Vitals/I&O/Wt Last Vital Signs Temp 99.0 F 11/07/22 08:00 Pulse 89 11/07/22 08:00 Resp 18 11/07/22 08:00 BP 112/70 11/07/22 08:00 Pulse Ox 95 11/07/22 08:00 O2 Del Method 11/07/22 08:00 11/06/22 11/07/22 11/07/22 22:59 06:59 14:59 Intake Total 1300 / 2200 1780 / 3980 490 / 490 Balance 1300 / 2200 1780 / 3980 490 / 490 Weight last 48 hrs Weight 180 lb Weight 180 lb Physical Exam Const: COMMON NORMALS: no acute distress, alert and well nourished GENERAL APPEARANCE: well kempt and well developed ORIENTATION/CONSCIOUSNESS: not confused HENMT: COMMON NORMALS: normocephalic HEAD & SCALP: normal to inspection and normocephalic Eye: COMMON NORMALS: conjunctivae normal and no scleral icterus CONJUNCTIVA: Yes conjunctivae normal Neck/C-Spine: GENERAL: Yes normal visual inspection Lymph: OTHER: No significant lymphadenopathy Chest: OTHER: Normal chest movements Resp: COMMON NORMALS: normal respiratory effort EFFORT & INSPECTION: Yes able to speak in complete sentences, No labored and No Actively coughing Cardio: COMMON NORMALS: regular rate RATE: regular rate GI: OTHER: Soft, nontender. : OTHER: Normal phallus. Scrotum is erythematous. Both testicles descended. The left is normal. The right shows significant induration of the epididymis with marked enlargement. Very tender. No testicular masses are felt. There is no fluctuance of the scrotum findings are consistent with severe right epididymoorchitis with local tissue inflammatory changes. Back/Pelvis: OTHER: No CVA tenderness Extremity: COMMON NORMALS: no clubbing, cyanosis or edema Neuro: COMMON NORMALS: no focal motor deficits SENSORIUM/ORIENTATION: Yes alert Psych: COMMON NORMALS: mental status grossly normal APPEARANCE: Yes grossly normal and Yes well kempt ATTITUDE: Yes calm and Yes engaged MOOD & AFFECT: Yes euthymic mood INSIGHT: Good insight present (Psych) JUDGEMENT: Good judgement present (Psych) Skin: COMMON NORMALS: no rashes or lesions noted and no jaundice GENERAL SKIN EXAM: no rashes or lesions noted OTHER: Multiple tattoos Data 11/07/22 10:25 11/07/22 10:25 Micro: Microbiology 11/06/22 04:21 Urine Culture - Preliminary Urine,Clean Catch 11/05/22 15:03 Blood Culture - Preliminary Blood NEGATIVE TO DATE 11/05/22 14:59 Blood Culture - Preliminary Blood NEGATIVE TO DATE A&P Assessment and plan (1) Epididymo-orchitis without abscess: Overall improving. Still has significant induration of the right epididymis and a lot of tenderness but his white count has substantially improved and his urinalysis is cleared. Recommend continuing antibiotic therapy with conversion to oral antibiotics for discharge when he is capable of managing the pain at home. (2) History of sexual behavior with high risk of exposure to communicable disease: Have not been able to establish an organism of cost (3) Cellulitis: It looks like most of the skin changes are simply inflammatory and a reaction to the severe epididymitis. (4) Nicotine dependence: Coding Level of Care Code Acute Code for [facility] Diagnoses Epididymo-orchitis without abscess N45.3 History of sexual behavior with high risk of exposure to communicable disease Z91.89 Cellulitis L03.90 Nicotine dependence F17.200
[2022-11-07 12:00] VITALS: BP 106/67; PULSE 77; RESP 18; TEMP 36.5; O2SAT 96
[2022-11-07] MEDS: ketorolac 10 mg Tablet PO (12:12)
[2022-11-07 12:15] LABS: Trichomonas Vaginalis TMA Male NOT DETECTED (NOT DETECTED)
--- NOTE | 2022-11-07 13:52 | PM.PN ---
Subjective Subjective: Patient continues to have complaints of right scrotal swelling and pain, no fevers, chills, spoke with urology service, recommended to continue antibiotic therapy for now Vitals/I&O/Wt Last Vital Signs Temp 97.7 F 11/07/22 12:00 Pulse 77 11/07/22 12:00 Resp 18 11/07/22 12:00 BP 106/67 11/07/22 12:00 Pulse Ox 96 11/07/22 12:00 O2 Del Method 11/07/22 12:00 11/06/22 11/07/22 11/07/22 22:59 06:59 14:59 Intake Total 1300 / 2200 1780 / 3980 780 / 780 Balance 1300 / 2200 1780 / 3980 780 / 780 Weight last 48 hrs Weight 81.647 kg Weight 81.647 kg Physical Exam Const: COMMON NORMALS: no acute distress and patient oriented x3 Resp: COMMON NORMALS: normal respiratory effort, No retractions, No use of accessory muscles and clear to auscultation bilaterally AUSCULTATION: clear to auscultation bilaterally Cardio: COMMON NORMALS: regular rate, regular rhythm, S1 normal heart sound present and S2 normal heart sound present RATE: regular rate RHYTHM: regular rhythm HEART SOUNDS: S1 normal heart sound present and S2 normal heart sound present GI: COMMON NORMALS: Normal to inspection, nondistended, normoactive bowel sounds present and non-tender Extremity: COMMON NORMALS: no pedal edema Neuro: COMMON NORMALS: patient oriented x3 Psych: COMMON NORMALS: mental status grossly normal Skin: NARRATIVE SKIN EXAM: exam, right testicle swollen, with erythema significantly reduced compared to prior Data 11/07/22 10:25 11/07/22 10:25 Micro: Microbiology 11/06/22 04:21 Urine Culture - Preliminary Urine,Clean Catch 11/05/22 15:03 Blood Culture - Preliminary Blood NEGATIVE TO DATE 11/05/22 14:59 Blood Culture - Preliminary Blood NEGATIVE TO DATE A&P Assessment and plan (1) Epididymo-orchitis without abscess: (2) History of sexual behavior with high risk of exposure to communicable disease: (3) Cellulitis: (4) Nicotine dependence: Plan #Acute epididymitis/orchitis #Cellulitis of right groin #Nicotine dependence ? Gonorrhea chlamydia negative, HIV screen negative ? Patient is status post azithromycin and IM gentamicin from yesterday's visit ? Continue on IV fluids normal saline 125 cc/h ? Patient is allergic to Keflex. He had hives and possible anaphylaxis in the past according to what he is explaining. ? Continue vancomycin and meropenem at this time -Scrotal elevation -Hydrocodone as needed for pain control ? Appreciate recommendations from urology. ? Await results of urine culture - He will need to follow-up with urology at discharge. -Await blood cultures -Nicotine patch offered but patient declined at this time. Full code DVT prophylaxis: Low risk for DVT. SCDs should suffice. Attestations Medical Necessity Statement*: Patient requires hospitalization for cellulitis, epididymitis, orchitis Diagnoses Epididymo-orchitis without abscess N45.3 History of sexual behavior with high risk of exposure to communicable disease Z91.89 Cellulitis L03.90 Nicotine dependence F17.200
[2022-11-07 16:00] VITALS: BP 109/67; PULSE 81; RESP 16; TEMP 36.6; O2SAT 97
[2022-11-07 20:00] VITALS: BP 111/69; PULSE 78; RESP 16; TEMP 37; O2SAT 96
[2022-11-08] VITALS: BP 104/66; PULSE 70; RESP 17; TEMP 37.1; O2SAT 96
[2022-11-08] MEDS: meropenem 1,000 MG in sodium chloride 0.9% (plus) 50 ML 100 MG IV ×2 (02:40→10:29)
[2022-11-08] MEDS: sodium chloride 0.9% 1,000 ML 125 ML IV (03:49)
[2022-11-08 04:00] VITALS: BP 104/68; PULSE 67; RESP 18; TEMP 36.6; O2SAT 97
[2022-11-08] MEDS: HYDROcodone-acetaminophen 5-325 mg Tablet 1 TAB PO (04:51)
[2022-11-08] MEDS: vancomycin 1,250 MG/250 ML PIGGYBACK 250 MG IV (06:24)
[2022-11-08 07:25] VITALS: BP 110/73; PULSE 69; RESP 16; O2SAT 97
[2022-11-08 11:31] VITALS: BP 105/67; PULSE 70; RESP 16; TEMP 36.7; O2SAT 97
--- NOTE | 2022-11-08 11:42 | PM.DCS ---
Discharge Providers Date of Admission: 11/05/22 18:18 Date of Discharge: November 08, 2022 Attending Provider at Admission: Latasha Newton MD Attending Provider at Discharge: Theodore Solares MD Diagnoses at Discharge Discharge Diagnosis (1) Epididymo-orchitis without abscess: Status: Acute (2) History of sexual behavior with high risk of exposure to communicable disease: Status: Acute (3) Cellulitis: Status: Acute (4) Nicotine dependence: Status: Acute Reason for Visit Reason for Visit: testicular pain still Hospital Course Hospital Course Marco A Pagan is a 42 year old male with no significant past medical history presenting to the ER with complaint of worsening swelling of his scrotum.? He was seen today before in the ER for testicular pain.? At that point he stated that he was having severe testicular pain on the right side.? No known injury.? He did get out of [facility] months ago and he has had 4 new sexual partner since that time and he thought he had STD.? He denies any penile discharge.? Denies fever chills nausea vomiting.? Patient was treated for gonorrhea chlamydia and urine sample was sent off to test for it.? He was allergic to cephalosporins so he was given gentamicin and azithromycin including Toradol and hydrocodone.? Scrotal ultrasound was also done which showed acute right epididymal orchitis no testicular mass or torsion.? He was asked to return to the ER if it worsened.? He presented tonight for worsening of symptoms.? He also states that lately he has noticed he has a decreased urine stream.? Has never had urological issues in the past.? He is unaware of any prostate problems. Today in the ER pelvic CT was done which showed findings of right-sided mastitis and epididymitis.? Some swelling in right inguinal canal of right spermatic cord.? No drainable fluid collection or abscess and no abnormal soft tissue gas.? Dr. Soriano was consulted from the ER.? He recommended conservative management with antibiotics at this point. Blood pressure 90/60 at this time when seen.? Not tachycardic.? WBC 21,000, UA from yesterday shows 1+ leukocyte esterase, WBC 50-25.? Gonorrhea chlamydia negative.? Patient is consented to check for HIV.? Lactic acid 1.6. Patient was admitted to [facility] for acute epididymitis, orchitis, cellulitis right groin, received broad-spectrum antibiotic therapy, overall clinically improved, discharged on 7 remaining days of Bactrim, hydrocodone for pain control to be used sparingly, do not drive operate heavy machinery or drink while taking medication, continue scrotal elevation Physical Exam Const: COMMON NORMALS: no acute distress and patient oriented x3 Resp: COMMON NORMALS: normal respiratory effort, No retractions, No use of accessory muscles and clear to auscultation bilaterally AUSCULTATION: clear to auscultation bilaterally Cardio: COMMON NORMALS: regular rate, regular rhythm, S1 normal heart sound present and S2 normal heart sound present RATE: regular rate RHYTHM: regular rhythm HEART SOUNDS: S1 normal heart sound present and S2 normal heart sound present GI: COMMON NORMALS: Normal to inspection, nondistended, normoactive bowel sounds present and non-tender Extremity: COMMON NORMALS: no pedal edema Neuro: COMMON NORMALS: patient oriented x3 Psych: COMMON NORMALS: mental status grossly normal Discharge Data Studies Completed and Pending Completed Studies During Hospitalization Category Date Time Status CT pelvis w con* [id number] Stat Cat Scan 11/05/22 16:32 Completed Pending at discharge Category Date Time Status Blood Culture Stat Lab 11/05/22 15:03 Results Vancomycin Trough Timed Lab 11/08/22 22:00 Ordered Radiology Impressions Pelvis CT 11/05/22 16:32 IMPRESSION: Findings of right-sided mastitis and epididymitis. Laboratory Results WBC 10.0 10^3/uL (4.0-10.0) 11/07/22 10:25 RBC 4.30 10^6/uL (4.1-5.3) 11/07/22 10:25 Hgb 13.1 g/dL (11.7-16.6) 11/07/22 10:25 Hct 41.6 % (42.0-52.0) L 11/07/22 10:25 MCV 96.7 fl (80-94) H 11/07/22 10:25 MCH 30.5 pg (28.0-34.0) 11/07/22 10:25 MCHC 31.5 g/dL (30.0-36.0) 11/07/22 10:25 RDW 13.8 % (12.1-15.1) 11/07/22 10:25 Plt Count 195 10^3/cmm (130-400) 11/07/22 10:25 MPV 10.5 fL (7.4-10.4) H 11/07/22 10:25 Neut % (Auto) 78.3 % 11/07/22 10:25 Lymph % (Auto) 13.1 % 11/07/22 10:25 Ralls % (Auto) 6.2 % 11/07/22 10:25 Eos % (Auto) 2.0 % 11/07/22 10:25 Baso % (Auto) 0.1 % 11/07/22 10:25 Neut # (Auto) 7.86 10^3/uL (1.8-7.7) H 11/07/22 10:25 Lymph # (Auto) 1.3 10^3/uL (0.8-4.8) 11/07/22 10:25 Ralls # (Auto) 0.6 10^3/uL (0.2-0.9) 11/07/22 10:25 Eos # (Auto) 0.2 10^3/uL (0.0-0.8) 11/07/22 10:25 Baso # (Auto) 0.0 10^3/uL (0.0-0.1) 11/07/22 10:25 Nucleated RBC % (auto) 0 % 11/07/22 10:25 Nucleated RBCs # 0.0 /100WBC 11/07/22 10:25 Sodium 137 mmol/L (136-145) 11/07/22 10:25 Potassium 3.9 mmol/L (3.5-5.1) 11/07/22 10:25 Chloride 106 mmol/L (98-107) 11/07/22 10:25 Carbon Dioxide 22 mmol/L (22-29) 11/07/22 10:25 Anion Gap 12.9 (5-19) 11/07/22 10:25 BUN 6 mg/dL (6-20) 11/07/22 10:25 Creatinine 0.7 mg/dL (0.7-1.2) 11/07/22 10:25 GFR Calculation 124.3 mL/min (90-130) 11/07/22 10:25 Glucose 104 mg/dL (65-115) 11/07/22 10:25 Calculated Osmolality 282 mOsm/kg (285-295) L 11/07/22 10:25 Lactic Acid 1.6 mmol/L (0.5-2.2) 11/05/22 17:40 Calcium 8.2 mg/dL (8.5-10.5) L 11/07/22 10:25 Magnesium 2.0 mg/dL (1.7-2.3) 11/06/22 04:58 C-Reactive Protein 57.5 mg/L (0.0-4.9) H 11/07/22 10:25 Procalcitonin 0.41 ng/mL (0-0.5) 11/05/22 14:50 TSH 0.46 uIU/mL (0.27-4.20) 11/05/22 14:50 Urine Color Yellow (Yellow) 11/06/22 04:21 Urine Appearance Clear (CLEAR) 11/06/22 04:21 Urine pH 5 (5-7) 11/06/22 04:21 Ur Specific [place] 1.020 (1.005-1.030) 11/06/22 04:21 Urine Protein Trace (Negative) 11/06/22 04:21 Urine Glucose (UA) Norm (Normal) 11/06/22 04:21 Urine Ketones Negative (Negative) 11/06/22 04:21 Urine Blood Neg (Negative) 11/06/22 04:21 Urine Nitrate Negative (Negative) 11/06/22 04:21 Urine Bilirubin Neg (Negative) 11/06/22 04:21 Urine Urobilinogen 1 mg/dL (Negative) H 11/06/22 04:21 Ur Leukocyte Esterase Negative (Negative) 11/06/22 04:21 Urine RBC 0-4 /hpf (0-2) H 11/06/22 04:21 Urine WBC 0-4 /hpf (0-5) H 11/06/22 04:21 Ur Squamous Epith Cells 0-4 /hpf (0-5) H 11/06/22 04:21 Amorphous Sediment Not Reportable 11/06/22 04:21 Urine Bacteria Trace /hpf (NONE) 11/06/22 04:21 Urine Mucus Trace /hpf 11/06/22 04:21 Vancomycin Trough 11.7 ug/mL (10-15) 11/06/22 14:17 HIV 1&2 Ab & HIV 1 Ag Non-reactive (Non-Reactiv) 11/05/22 04:58 HIV 1&2 Antibody Non-reactive (Non-Reactiv) 11/05/22 04:58 T. vaginalis (PCR) Not detected (NOT DETECTED) 11/06/22 10:39 Vitals Last Vital Signs Temp 98.1 F 11/08/22 11:31 Pulse 70 11/08/22 11:31 Resp 16 11/08/22 11:31 BP 105/67 11/08/22 11:31 Pulse Ox 97 11/08/22 11:31 O2 Del Method 11/08/22 11:31 Discharge Plan Discharge Patient Disposition: Home Condition: Stable Prescriptions: New hydrocodone-acetaminophen 5-325 mg Tablet 1 tab PO Q8H PRN (Reason: Moderate Pain) 5 Days Qty: 15 0RF sulfamethoxazole-trimethoprim [Bactrim DS] 800-160 mg tablet 1 tab PO BID 7 Days Qty: 14 0RF No Action No Known Home Medications Discharge Orders: Discharge Order (Routine); Ordered 11/08/22 Ordered By: Theodore Solares Referrals: Talib Soriano MD [Physician] - 4-7 days Discharge Diet: Cardiac Discharge Activity: Resume usual activity Patient Instructions: Opioid Safety Activity Restrictions/Additional Instructions: - If any recurrent fevers, cellulitis, please go to emergency room -Please use hydrocodone sparingly, do not drive or operate machinery or drink while taking medication -Continue scrotal elevation Discharge Attestations Time Spent in Discharge Care*: greater than 30 min Quality Metrics Clinical Quality Measures [ No reported AMI, CVA or VTE this stay] Coding Level of Care Code 48902 Total time (in minutes) for Discharge: 40 Diagnoses Epididymo-orchitis without abscess N45.3 History of sexual behavior with high risk of exposure to communicable disease Z91.89 Cellulitis L03.90 Nicotine dependence F17.200
--- NOTE | 2022-11-08 13:53 | PC.NURSE ---
patient verbalized understanding of discharge instructions, home medications and follow up appointments.
[2022-11-08 13:54] VITALS: BP 105/67; PULSE 70; RESP 16; TEMP 36.7; O2SAT 97
== END 2022-11-08 12:20 | disposition home or self-care (01) | DRG 728 ==
LOC: ER 14:40 → MEDSURG 18:19
PROVIDERS: Admitting Provider Internal Medicine; Emergency Provider Family Medicine; Visit Provider Family Medicine
DX: N45.3 Epididymo-orchitis (principal); L03.314 Cellulitis of groin; Z88.1 Allergy status to other antibiotic agents; F17.200 Nicotine dependence, unspecified, uncomplicated; Z72.51 High risk heterosexual behavior
CPT/HCPCS: 36415; 72193; 80048; 80202; 81001; 83605; 83735; 84145; 84443; 85025; 86140; 87040; 87086; 87661; 87806; 96365; 96372; 96375; 99285; J1885; J2185; J2270; J2405; J3370; J7030; J7050; Q9967

== ENCOUNTER 2024-06-13 23:52 | Emergency (ER) | payer MEDICAID, SELFPAY ==
[2024-06-14 00:03] VITALS: BP 136/95; PULSE 116; RESP 20; O2SAT 100; BMI 19.8
--- NOTE | 2024-06-14 00:25 | XRR_ITS ---
PROCEDURE INFORMATION: Exam: XR Left Knee Exam date and time: 06/14/2024 12:30 AM Age: 44 years old Clinical indication: Injury or trauma; Fall; Bleeding/hemorrhage and blunt trauma; Knee; Left; Additional info: Medial knee lac TECHNIQUE: Imaging protocol: Radiologic exam of the left knee. Views: 3 views. COMPARISON: No relevant prior studies available. FINDINGS: Bones/joints: No acute fracture or dislocation. Soft tissues: Soft tissue swelling and edema about the posterior knee. Other findings: A 1.8 cm long linear metallic object projects about the lateral aspect of the superior lower leg. XR/XR knee LT 3V* [id number] IMPRESSION: 1. Soft tissue swelling and edema about the posterior knee. 2. A 1.8 cm long linear metallic object projects about the lateral aspect of the superior lower leg. This is not definitively external. Recommend visual inspection of this location in correlation with patient's clothing to exclude retained foreign body. 3. No acute fracture or dislocation.
[2024-06-14] MEDS: LORazepam 1 mg Tablet PO (00:30)
[2024-06-14] MEDS: HYDROcodone-acetaminophen 5-325 mg Tablet 1 TAB PO (00:30)
[2024-06-14] MEDS: lidocaine-epi 2% 20 mL INJ INJECTION (00:31)
--- NOTE | 2024-06-14 00:40 | W.ED.WOUNDLC ---
HPI - Wound/Laceration General: Chief Complaint: Wound/Laceration Stated Complaint: Left leg lac Time Seen by Provider: 06/14/24 00:08 Source: patient Mode of arrival: ambulatory Limitations: no limitations History of Present Illness: Patient is a 44-year-old male presents the emergency department due to laceration to left knee prior to arrival. Overall patient unaware of what caused it, though states he was stepping down a ladder when he fell, and noted a laceration after. He is very anxious at this time, shaking diffusely. States he had a tetanus 2 to 3 years ago and this is up-to-date. Denies any foreign body or contamination. Denies any distal neurovascular deficits. States he is not having any pain at this time, mainly is anxious. Onset (ago): minute(s) Extremity Location: Left: knee Place: outdoors Patient tetanus UTD: Yes Context: accidental Associated symptoms: Denies chills, fever(s), nausea or vomiting Related Data Previous Rx's Medication Instructions Recorded sulfamethoxazole 800 1 tab PO BID 7 days #14 tabs 06/14/24 mg-trimethoprim 160 mg tablet (Bactrim DS) Allergies Allergy/AdvReac Type Severity Reaction Status Date / Time cephalexin [From Keflex] Allergy ALGY-Anaphy Verified 11/05/22 14:22 laxis Review of Systems General: Reports: 10 or more systems reviewed and unremarkable except in HPI and below Const: Denies: fever(s) or chills Card: Denies: chest pain Resp: Denies: dyspnea GI: Denies: abdominal pain, nausea, vomiting or diarrhea Musc: Denies: extremity pain or joint pain Skin/Breast: Reports: new lesions (Laceration to medial left knee); Denies: rash, skin pain or skin tenderness Neuro: Denies: headache(s) Psych: Reports: anxiety PFSH ED PFSH: Medical History Nicotine dependence Epididymo-orchitis without abscess Physical Exam Const: COMMON NORMALS: average body habitus, patient oriented x3, no limitations, healthy appearing, alert and well nourished GENERAL APPEARANCE: anxious HENMT: COMMON NORMALS: normocephalic and atraumatic HEAD & SCALP: normocephalic and atraumatic Neck/C-Spine: COMMON NORMALS: full ROM, no lymphadenopathy, supple and no meningeal signs Resp: COMMON NORMALS: normal respiratory effort, No use of accessory muscles and clear to auscultation bilaterally AUSCULTATION: clear to auscultation bilaterally Cardio: COMMON NORMALS: regular rate and regular rhythm RATE: regular rate RHYTHM: regular rhythm Extremity: COMMON NORMALS: full ROM and capillary refill normal Neuro: COMMON NORMALS: patient oriented x3 SENSORIUM/ORIENTATION: Yes alert MENINGEAL SIGNS: Yes no meningeal signs Psych: OTHER: Patient appears severely anxious and is shaking uncontrollably during examination Skin: COMMON NORMALS: turgor normal NARRATIVE SKIN EXAM: Large, 3.5 in laceration to the medial left knee with no contamination or foreign body. Evidence of adipose tissue protruding, though there is no tendon or muscle involvement. No active bleeding at this time. GENERAL SKIN EXAM: turgor normal Procedures Laceration Laceration 1: Site: lower extremity Side (If applicable): left Size (cm): 9 Description: linear and clean Depth: simple, single layer Local Anesthetic: lidocaine 2% and with epi Amount of anesthesia used (mL): 10 Pre-repair: wound explored, irrigated extensively and deep structures intact Skin layer closed with: other (Prolene) Size (cm): 4-0 Number of sutures: 13 Technique: simple, interrupted Course Vital Signs: Vital signs: Vital Signs Pulse Rate 86 06/14/24 01:49 Respiratory Rate 20 H 06/14/24 00:03 Blood Pressure 101/67 06/14/24 01:49 Pulse Oximetry 96 06/14/24 01:49 Oxygen Delivery Me thod Room Air 06/14/24 00:03 MDM - Wound/Laceration Medical Decision Making Patient cut medial aspect of his left leg while stepping down a ladder, tetanus up-to-date. X-ray showed incidental metallic foreign body that is deemed not related to the injury, as he is not having any pain and this was inferior and lateral to the laceration. Laceration was repaired, see procedure note. It was irrigated with normal saline as well as flushes, and cleaned with chlorhexidine. Proper wound care discussed and he is informed to have the sutures out in 10-14 days and return with any signs of infection. Lab Data Radiology Impressions Knee X-Ray 06/14/24 00:25 IMPRESSION: 1. Soft tissue swelling and edema about the posterior knee. 2. A 1.8 cm long linear metallic object projects about the lateral aspect of the superior lower leg. This is not definitively external. Recommend visual inspection of this location in correlation with patient's clothing to exclude retained foreign body. 3. No acute fracture or dislocation. All radiology interpretation(s) finalized by discharge Discharge Plan Discharge Patient Disposition: Home Clinical Impression: Laceration of knee, left Qualifiers: Encounter type: initial encounter Qualified Code(s): S81.012A - Laceration without foreign body, left knee, initial encounter Condition: Stable Prescriptions: New Bactrim DS 800-160 mg tablet 1 tab PO BID 7 Days Qty: 14 0RF Discharge Orders: Discharge ED (Routine); Ordered 06/14/24 Ordered By: Harinder Barrera Discharge Diet: Usual diet Discharge Activity: Limit activity as instructed Patient Instructions: Laceration (ED), Pain Management Activity Restrictions/Additional Instructions: Sutures out in 10-14 days. Please keep knee straight as best as possible, and use crutches as instructed. Keep wound dry for the first 48 hours, afterwards you may dab with soap and water to clean. Avoid exposure to the sun as best as possible. Tylenol or ibuprofen for pain relief. Take antibiotics as prescribed. Apply ice the area for any swelling. Return with any concerning signs or symptoms of an infection such as redness or severe increase in pain. Stand Alone Forms: Work/School Release Coding Level of Care Code ED [employer]
[2024-06-14] MEDS: sulfamethoxazole-trimeth DS 160-800 mg Tablet 1 TAB PO (01:45)
[2024-06-14 01:49] VITALS: BP 101/67; PULSE 86; O2SAT 96
== END 2024-06-14 01:51 | disposition home or self-care (01) ==
PROVIDERS: Emergency Provider Physician Assistant
DX: S81.012A Laceration without foreign body, left knee, initial encounter (principal); W11.XXXA Fall on and from ladder, initial encounter
CPT/HCPCS: 73562; 99283

== ENCOUNTER 2025-07-05 10:04 | Outpatient (CLI) | payer MEDICAID, SELFPAY ==
--- NOTE | 2025-07-05 10:16 | XR_ITS ---
WS: [id number] XR shoulder LT min 2V* [id number] REASON FOR EXAM: BILATERAL SHOULDER PAIN FINDINGS: No fracture or focal bone lesion. Mild narrowing of the acromioclavicular joint space with mild subchondral sclerosis and osteophytosis. The glenohumeral joint space is not optimally demonstrated. There appears to be mild narrowing. There is mild subchondral sclerosis of the glenoid. Minimal osteophytosis of the humeral head. Mild sclerosis in the greater biceps tuberosity. 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 Mild rotator cuff tendon arthropathy.
--- NOTE | 2025-07-05 10:16 | XR_ITS ---
WS: [id number] XR shoulder RT min 2V* [id number] REASON FOR EXAM: BILATERAL SHOULDER PAIN FINDINGS: No fracture or focal bone lesion. Mild narrowing of the acromioclavicular joint with mild subchondral sclerosis and osteophytosis. The glenohumeral joint space is not well demonstrated. Probably mild narrowing. Mild subchondral sclerosis of the glenoid. Minimal osteophytosis of the humeral head. Minimal sclerosis in the greater biceps tuberosity. XR/XR shoulder RT min 2V* [id number] IMPRESSION: Mild osteoarthritis in the acromioclavicular joint and glenohumeral joint. Minimal rotator cuff tendon arthropathy.
== END 2025-07-05 10:05 | disposition home or self-care (01) ==
LOC: RAD 10:08
PROVIDERS: Visit Provider Internal Medicine
DX: M19.012 Primary osteoarthritis, left shoulder (principal); M19.011 Primary osteoarthritis, right shoulder
CPT/HCPCS: 73030